=== PATIENT | male | born 1995 | race Caucasian/White ===

== ENCOUNTER 2018-09-15 01:22 | Emergency (ER) | payer OTHER ==
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
[2018-09-15] MEDS ORDERED: LIDOCAINE 1%/EPINEPHRINE INJ 20 ML VIAL INJ ONE (02:13)
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
[2018-09-15 02:36] VITALS: BP 133/74
== END 2018-09-15 02:35 | disposition home or self-care (01) ==
LOC: EDBD 01:22 → EDSEX 01:22 → ER 01:22
DX: S01.01XA Laceration without foreign body of scalp, initial encounter (principal); S06.0X1A Concussion with loss of consciousness of 30 minutes or less, initial encounter; W10.9XXA Fall (on) (from) unspecified stairs and steps, initial encounter
CPT/HCPCS: 99284; 70450; 70486; 72125; 12001; L0120; J3490